=== PATIENT | female | born 2000 | race Caucasian/White ===

== ENCOUNTER 2021-01-20 10:14 | Day surgery (SDC) | payer OTHER, SELFPAY ==
[2021-01-20 10:46] VITALS: BMI 46.3
[2021-01-20 12:27] LABS: #Eosinphils 0.1 10x3/uL (0.0-0.5); #Monocytes 0.6 10x3/uL (0.0-1.1); #Neutrophils 5.8 10x3/uL (1.5-8.4); %Basophils 0.3 % (0.0-2.0); %Monocytes 6.9 % (0.0-10.0); %Neutrophils 66.3 % (40.0-75.0); Hemoglobin 11.3 g/dL (12.0-15.5); Mean Corpuscular HGB CONC 31.3 g/dL (32.0-36.0); Mean Corpuscular Hemoglobin 25.2 pg (27.0-33.0); Mean Corpuscular Volume 80.4 fl (81.6-98.3); Mean Platelet Volume 10.9 fl (7.4-10.4); Platelet Count 340 10x3/uL (150-450); RBC Distribution Width 15.2 % (11.5-14.5); Red Blood Cell (RBC) Count 4.49 10x6/uL (3.90-5.03); White Blood Cell (WBC) Count 8.7 10x3/uL (3.5-10.5)
[2021-01-20 12:35] LABS: Creatinine, Urine 147.49 mg/dL (47-110)
[2021-01-20 12:40] LABS: ALT (SGPT) 26 U/L (8-55); AST (SGOT) 17 U/L (5-34); Alkaline Phosphatase 141 U/L (40-110); Anion Gap 12 mmol/L (10-20); BUN (Urea Nitrogen) 7 mg/dL (7.0-18.7); Bilirubin, Total 0.2 mg/dL (0.2-1.2); Calc. Creatinine Clearance 289 mL/min (70-130); Calcium 8.6 mg/dL (7.8-10.44); Carbon Dioxide 21 mmol/L (22-29); Chloride 109 mmol/L (98-107); Globulin 3.6 g/dL (2.4-3.5); Glucose 85 mg/dL (70-105); Protein, Total 6.6 g/dL (6.0-8.3); Sodium 138 mmol/L (136-145)
[2021-01-20] MEDS ORDERED: hydrALAZINE 20 MG/ML VIAL SLOW IVP PRN (14:05)
== END 2021-01-20 14:36 | disposition home or self-care (01) ==
LOC: CSHLD/OP 10:14
PROVIDERS: ATTEND Obstetrics & Gynecology
DX: O10.013 Pre-existing essential hypertension complicating pregnancy, third trimester (principal); O99.891 Other specified diseases and conditions complicating pregnancy; O09.33 Supervision of pregnancy with insufficient antenatal care, third trimester; O99.213 Obesity complicating pregnancy, third trimester; R10.11 Right upper quadrant pain; H43.393 Other vitreous opacities, bilateral; Z3A.30 30 weeks gestation of pregnancy; Z79.82 Long term (current) use of aspirin; Z79.899 Other long term (current) drug therapy; Z87.59 Personal history of other complications of pregnancy, childbirth and the puerperium
CPT/HCPCS: 36415; 76705; 80053; 82570; 83615; 84156; 85025; 99282

== ENCOUNTER 2021-02-13 15:14 | Day surgery (SDC) | payer OTHER ==
[2021-02-13 16:40] VITALS: BMI 46.8
[2021-02-13 17:15] LABS: Creatinine, Urine 140.46 mg/dL (47-110)
[2021-02-13 17:54] LABS: #Eosinphils 0.1 10x3/uL (0.0-0.5); #Monocytes 0.6 10x3/uL (0.0-1.1); #Neutrophils 7.8 10x3/uL (1.5-8.4); %Basophils 0.3 % (0.0-2.0); %Eosinophils 0.6 % (0.0-6.0); %Lymphocytes 21.8 % (18.0-47.0); %Monocytes 5.4 % (0.0-10.0); %Neutrophils 71.5 % (40.0-75.0); Hemoglobin 12.1 g/dL (12.0-15.5); Mean Corpuscular HGB CONC 30.6 g/dL (32.0-36.0); Mean Corpuscular Hemoglobin 24.7 pg (27.0-33.0); Mean Corpuscular Volume 80.8 fl (81.6-98.3); Mean Platelet Volume 11.9 fl (7.4-10.4); Platelet Count 349 10x3/uL (150-450); RBC Distribution Width 15.9 % (11.5-14.5); Red Blood Cell (RBC) Count 4.89 10x6/uL (3.90-5.03); White Blood Cell (WBC) Count 10.9 10x3/uL (3.5-10.5)
[2021-02-13 18:11] LABS: ALT (SGPT) 22 U/L (8-55); AST (SGOT) 17 U/L (5-34); Albumin 3.2 g/dL (3.5-5.0); Alkaline Phosphatase 166 U/L (40-110); Anion Gap 14 mmol/L (10-20); BUN (Urea Nitrogen) 8 mg/dL (7.0-18.7); Bilirubin, Total 0.2 mg/dL (0.2-1.2); Calc. Creatinine Clearance 271 mL/min (70-130); Carbon Dioxide 20 mmol/L (22-29); Chloride 108 mmol/L (98-107); Globulin 4.1 g/dL (2.4-3.5); Glucose 82 mg/dL (70-105); Protein, Total 7.3 g/dL (6.0-8.3); Sodium 138 mmol/L (136-145); Uric Acid 5.2 mg/dL (2.6-6.0)
== END 2021-02-13 19:18 | disposition home or self-care (01) ==
LOC: CSHLD/OP 15:14
PROVIDERS: ATTEND Family Medicine
DX: O16.3 Unspecified maternal hypertension, third trimester (principal); O09.33 Supervision of pregnancy with insufficient antenatal care, third trimester; O99.213 Obesity complicating pregnancy, third trimester; E66.01 Morbid (severe) obesity due to excess calories; Z3A.34 34 weeks gestation of pregnancy; Z79.82 Long term (current) use of aspirin
CPT/HCPCS: 36415; 76815; 80053; 82570; 83615; 84156; 84550; 85025; 99283

== ENCOUNTER 2021-02-24 18:15 | Inpatient (IN) | payer OTHER, SELFPAY ==
[2021-02-24 18:46] VITALS: BMI 48.5
[2021-02-24] MEDS ORDERED: hydrALAZINE 20 MG/ML VIAL SLOW IVP PRN (19:02)
[2021-02-24 19:23] LABS: #Basophils 0.1 10x3/uL (0.0-0.2); #Eosinphils 0.1 10x3/uL (0.0-0.5); #Monocytes 0.5 10x3/uL (0.0-1.1); #Neutrophils 7.1 10x3/uL (1.5-8.4); %Basophils 0.5 % (0.0-2.0); %Eosinophils 0.9 % (0.0-6.0); %Lymphocytes 25.3 % (18.0-47.0); %Monocytes 5.1 % (0.0-10.0); %Neutrophils 68.1 % (40.0-75.0); Hemoglobin 12.5 g/dL (12.0-15.5); Mean Corpuscular Hemoglobin 25.3 pg (27.0-33.0); Mean Corpuscular Volume 79.1 fl (81.6-98.3); Mean Platelet Volume 11.2 fl (7.4-10.4); RBC Distribution Width 17.9 % (11.5-14.5); Red Blood Cell (RBC) Count 4.94 10x6/uL (3.90-5.03); White Blood Cell (WBC) Count 10.4 10x3/uL (3.5-10.5)
[2021-02-24 19:26] LABS: Platelet Count 313 10x3/uL (150-450)
[2021-02-24 19:36] LABS: Creatinine, Urine 221.46 mg/dL (47-110)
[2021-02-24 19:38] LABS: ALT (SGPT) 22 U/L (8-55); AST (SGOT) 17 U/L (5-34); Albumin 3.1 g/dL (3.5-5.0); Alkaline Phosphatase 177 U/L (40-110); Anion Gap 12 mmol/L (10-20); BUN (Urea Nitrogen) 12 mg/dL (7.0-18.7); Bilirubin, Total 0.2 mg/dL (0.2-1.2); Calc. Creatinine Clearance 265 mL/min (70-130); Calcium 9.1 mg/dL (7.8-10.44); Carbon Dioxide 20 mmol/L (22-29); Chloride 109 mmol/L (98-107); Globulin 4.1 g/dL (2.4-3.5); Glucose 81 mg/dL (70-105); Potassium 3.8 mmol/L (3.5-5.1); Protein, Total 7.2 g/dL (6.0-8.3); Sodium 137 mmol/L (136-145); Uric Acid 5.5 mg/dL (2.6-6.0)
[2021-02-24] MEDS ORDERED: Ondansetron PF 4 MG/2 ML Vial IVP PRN (20:02)
[2021-02-24] MEDS ORDERED: Acetaminophen 500 MG TAB PO PRN (20:02)
[2021-02-24 21:46] LABS: INR-International Normal Ratio 0.9; PTT 25.3 sec (22.0-33.0); Prothrombin Time 9.8 sec (9.5-12.1)
[2021-02-24 23:48] LABS: SARS-CoV-2 NAA Rapid Test Not Detected (NotDetected)
[2021-02-25] MEDS ORDERED: Labetalol 100 MG TAB PO SCH ×2 (09:00)
[2021-02-26 07:29] LABS: 24 Hr Creatinine 1704.64 mg/24 hr (710-1650); Creatinine, Urine 213.08 mg/dL (47-110)
[2021-02-26 15:16] LABS: HIV (1/2) Antibody/Antigen Non-Reactive (NonReactive); HIV 1/2 INDEX 0.08 S/CO (<1.00)
[2021-02-26 15:18] LABS: Syphilis Antibody Nonreactive (Nonreactive); Syphilis Antibody Index 0.02 S/CO (<1.00 Non-Reactive)
== END 2021-02-25 21:10 | disposition home or self-care (01) | DRG 833 ==
LOC: CSHLD/OP 18:15 → CSHLD 02-25 11:38
PROVIDERS: ADMIT Obstetrics & Gynecology; ATTEND Student in an Organized Health Care Education/Training Program
DX: O10.013 Pre-existing essential hypertension complicating pregnancy, third trimester (principal); O99.213 Obesity complicating pregnancy, third trimester; E66.9 Obesity, unspecified; Z3A.35 35 weeks gestation of pregnancy; Z20.822 Contact with and (suspected) exposure to COVID-19
CPT/HCPCS: 76819; 80053; 82570; 83615; 83880; 84156; 84550; 85025; 85610; 85730; 86780; 87389; U0002

== ENCOUNTER 2021-03-09 15:02 | Outpatient (CLI) | payer OTHER ==
[2021-03-10 08:59] LABS: SARS-CoV-2 PCR by NAA Not Detected (NotDetected)
== END 2021-03-09 15:03 | disposition home or self-care (01) ==
LOC: CSHLAB 15:02
PROVIDERS: ATTEND Family Medicine
DX: Z20.822 Contact with and (suspected) exposure to COVID-19 (principal)
CPT/HCPCS: U0003; U0005

== ENCOUNTER 2021-03-10 18:40 | Inpatient (IN) | payer MEDICAID, OTHER, SELFPAY ==
[2021-03-10] MEDS ORDERED: hydrALAZINE 20 MG/ML VIAL ONE (20:33)
[2021-03-10] MEDS: hydrALAZINE 20 MG/ML VIAL SLOW IVP PRN (20:45)
[2021-03-10] MEDS ORDERED: Magnesium Sulfate 20 gm/500 ml 20 GM/500 ML BAG ONE (20:46)
[2021-03-10] MEDS ORDERED: Lidocaine 1% (PF) 30 ML VIAL SC PRN (21:01)
[2021-03-10] MEDS ORDERED: Ondansetron PF 4 MG/2 ML Vial IVP PRN (21:02)
[2021-03-10] MEDS ORDERED: Promethazine HCl 25 MG/ML VIAL IM PRN (21:02)
[2021-03-10] MEDS ORDERED: Calcium Gluc 4.6 MEQ/10 ML (100 MG/ML) SLOW IVP PRN (21:06)
[2021-03-10] MEDS: Magnesium Sulfate 20 gm/500 ml 20 GM/500 ML BAG IVPB SCH (21:09)
[2021-03-10] MEDS ORDERED: NS w/ Oxytocin 30 units 500 ML IV SCH (21:15)
[2021-03-10] MEDS ORDERED: Magnesium Sulfate 20 GM/WATER 500 ML BAG IVPB SCH (21:15)
[2021-03-10] MEDS ORDERED: Labetalol HCl 100 MG/20 ML VIAL ONE (21:17)
[2021-03-10] MEDS: Labetalol HCl 100 MG/20 ML VIAL SLOW IVP PRN (21:18)
[2021-03-10 21:33] LABS: ALT (SGPT) 25 U/L (8-55); AST (SGOT) 22 U/L (5-34); Albumin 3.5 g/dL (3.5-5.0); Alkaline Phosphatase 208 U/L (40-110); Anion Gap 17 mmol/L (10-20); BUN (Urea Nitrogen) 12 mg/dL (7.0-18.7); Bilirubin, Total 0.2 mg/dL (0.2-1.2); Calc. Creatinine Clearance 0 mL/min (70-130); Calcium 9.2 mg/dL (7.8-10.44); Carbon Dioxide 18 mmol/L (22-29); Chloride 107 mmol/L (98-107); Globulin 3.9 g/dL (2.4-3.5); Glucose 79 mg/dL (70-105); Potassium 4.6 mmol/L (3.5-5.1); Protein, Total 7.4 g/dL (6.0-8.3); Sodium 137 mmol/L (136-145); Uric Acid 5.8 mg/dL (2.6-6.0)
[2021-03-10 21:50] LABS: #Monocytes 0.6 10x3/uL (0.0-1.1); #Neutrophils 7.1 10x3/uL (1.5-8.4); %Basophils 0.3 % (0.0-2.0); %Eosinophils 0.4 % (0.0-6.0); %Monocytes 5.9 % (0.0-10.0); %Neutrophils 68.1 % (40.0-75.0); Hemoglobin 13.6 g/dL (12.0-15.5); Mean Corpuscular HGB CONC 31.5 g/dL (32.0-36.0); Mean Corpuscular Hemoglobin 25.6 pg (27.0-33.0); Mean Corpuscular Volume 81.2 fl (81.6-98.3); Mean Platelet Volume 11.9 fl (7.4-10.4); Platelet Count 373 10x3/uL (150-450); RBC Distribution Width 19.9 % (11.5-14.5); Red Blood Cell (RBC) Count 5.32 10x6/uL (3.90-5.03); White Blood Cell (WBC) Count 10.4 10x3/uL (3.5-10.5)
[2021-03-10 21:53] LABS: Hep B Surf Ag Non-Reactive S/CO (NonReactive); Syphilis Antibody Nonreactive (Nonreactive); Syphilis Antibody Index 0.05 S/CO (<1.00 Non-Reactive)
[2021-03-10 21:54] LABS: HBSAg Index 0.19 S/CO (0-0.99)
[2021-03-10] MEDS ORDERED: Misoprostol 200 MCG TAB PR PRN (21:54)
[2021-03-10] MEDS ORDERED: NS w/ Oxytocin 30 units 500 ML IVPB SCH (22:00)
[2021-03-11 01:19] VITALS: BMI 50.3
[2021-03-11] MEDS ORDERED: Acetaminophen 500 MG TAB PO PRN (03:19)
[2021-03-11] MEDS: Magnesium Sulfate 20 gm/500 ml 20 GM/500 ML BAG IVPB SCH ×2 (05:37→18:55)
[2021-03-11] MEDS: Labetalol HCl 100 MG/20 ML VIAL SLOW IVP PRN (07:27)
[2021-03-11 07:36] LABS: Creatinine, Urine 106.99 mg/dL (47-110)
[2021-03-11] MEDS ORDERED: Carboprost 250 MCG/ML AMP ONE (07:39)
[2021-03-11] MEDS ORDERED: Lidocaine 1% (PF) 30 ML VIAL ONE (07:39)
[2021-03-11] MEDS ORDERED: Misoprostol 200 MCG TAB ONE (07:39)
[2021-03-11] MEDS: hydrALAZINE 20 MG/ML VIAL SLOW IVP PRN (09:45)
[2021-03-11] MEDS ORDERED: Labetalol HCl 100 MG/20 ML VIAL SLOW IVP SCH (11:00)
[2021-03-11] MEDS ORDERED: Misoprostol 200 MCG TAB VAG PRN (11:54)
[2021-03-11] MEDS ORDERED: Benzocaine-Menthol 82.5 ML CAN TOP PRN (11:54)
[2021-03-11] MEDS ORDERED: Boostrix 0.5 ML (Tdap) VIAL IM ONE (11:54)
[2021-03-11] MEDS ORDERED: diphenhydrAMINE 25 MG CAP PO PRN (11:54)
[2021-03-11] MEDS ORDERED: Bisacodyl 10 MG SUPP PR PRN (11:54)
[2021-03-11] MEDS ORDERED: Ondansetron PF 4 MG/2 ML Vial IVP PRN (11:54)
[2021-03-11] MEDS ORDERED: Milk Of Magnesia 30 ML UDCUP PO PRN (11:54)
[2021-03-11] MEDS ORDERED: Lanolin Ointment 7 GM TUBE TOP PRN (11:54)
[2021-03-11] MEDS ORDERED: Acetaminophen/Codeine 30-300mg Tablet PO PRN (11:54)
[2021-03-11] MEDS ORDERED: hydrALAZINE 20 MG/ML VIAL SLOW IVP PRN (11:54)
[2021-03-11] MEDS ORDERED: Preparation H Ointment 28 GM TUBE PR PRN (11:54)
[2021-03-11] MEDS ORDERED: Docusate Calcium (SURFAK) 240 MG CAP PO SCH (12:00)
[2021-03-11] MEDS ORDERED: Prenatal Vitamin 1 TAB PO SCH (12:00)
[2021-03-11] MEDS ORDERED: NIFEdipine 10 MG CAP PO SCH ×2 (14:45→18:45)
[2021-03-11 15:04] LABS: Amphetamine Not Detected (NotDetected); Barbiturates Screen Not Detected (NotDetected); Benzodiazepine Screen Not Detected (NotDetected); Cocaine Metabolite Screen Not Detected (NotDetected); Methadone Not Detected (NotDetected); Methamphetamine Not Detected (NotDetected); Opiate Screen Not Detected (NotDetected); Oxycodone Screen Not Detected (NotDetected); Phencyclidine (PCP) Not Detected (NotDetected); THC/Cannabinoid Screen Not Detected (NotDetected); Tricyclic Screen Not Detected (NotDetected)
[2021-03-11] MEDS: Ibuprofen 800 MG TAB PO SCH ×2 (16:06→23:36)
[2021-03-11] MEDS ORDERED: Calcium Gluconate 4.6 MEQ in Sodium Chloride 0.9% 100 ML IVPB PRN (17:18)
[2021-03-11 18:27] LABS: Magnesium 5.7 mg/dL (1.6-2.6)
[2021-03-11] MEDS: Ferrous Sulfate 325 MG TAB PO SCH (18:55)
[2021-03-11] MEDS: Docusate Calcium (SURFAK) 240 MG CAP PO SCH (23:37)
[2021-03-12] MEDS: Magnesium Sulfate 20 gm/500 ml 20 GM/500 ML BAG IVPB SCH (05:04)
[2021-03-12] MEDS: Ibuprofen 800 MG TAB PO SCH ×3 (09:09→23:12)
[2021-03-12] MEDS: Prenatal Vitamin 1 TAB PO SCH (09:09)
[2021-03-12] MEDS: Docusate Calcium (SURFAK) 240 MG CAP PO SCH ×2 (09:09→20:51)
[2021-03-12] MEDS: Ferrous Sulfate 325 MG TAB PO SCH ×2 (09:09→18:33)
[2021-03-12] MEDS ORDERED: Labetalol 100 MG TAB PO SCH (11:53)
[2021-03-12] MEDS: Labetalol 100 MG TAB PO SCH (20:51)
[2021-03-13] MEDS: Ibuprofen 800 MG TAB PO SCH ×2 (05:37→13:36)
[2021-03-13] MEDS: Labetalol 100 MG TAB PO SCH (08:29)
[2021-03-13] MEDS: Ferrous Sulfate 325 MG TAB PO SCH (08:29)
[2021-03-13] MEDS: Prenatal Vitamin 1 TAB PO SCH (08:29)
[2021-03-13] MEDS: Docusate Calcium (SURFAK) 240 MG CAP PO SCH (08:29)
[2021-03-13 11:29] VITALS: BP 141/65; TEMP 99.2
== END 2021-03-13 17:20 | disposition home or self-care (01) | DRG 807 ==
LOC: CSHLD 18:40 → CSHPP 03-12 14:17
PROVIDERS: ADMIT Family Medicine; ATTEND Family Medicine
PROC: 10E0XZZ Delivery of Products of Conception, External Approach (ICD-10-PCS; principal; 2021-03-11)
PROC: 3E033VJ Introduction of Other Hormone into Peripheral Vein, Percutaneous Approach (ICD-10-PCS; 2021-03-11)
DX: O14.14 Severe pre-eclampsia complicating childbirth (principal); Z37.0 Single live birth; Z3A.38 38 weeks gestation of pregnancy; O99.214 Obesity complicating childbirth; O76 Abnormality in fetal heart rate and rhythm complicating labor and delivery; O70.0 First degree perineal laceration during delivery; O10.92 Unspecified pre-existing hypertension complicating childbirth
CPT/HCPCS: 36415; 51702; 80053; 80306; 82570; 83735; 84156; 84550; 85025; 86780; 86850; 86900; 86901; 87340; J0360; J2590; J3475